=== PATIENT | female | born 1990 | race Caucasian/White ===

== ENCOUNTER 2022-10-21 15:01 | Emergency (ER) | payer OTHER, SELFPAY ==
[2022-10-21 15:18] VITALS: BP 102/64; PULSE 97; RESP 16; TEMP 36.4; O2SAT 100; BMI 24.7
--- NOTE | 2022-10-21 15:31 | CRLHL7_ITS ---
For Patients: As a result of the Century Cures Act, medical imaging exams and procedure reports are released immediately into your electronic medical record. You may view this report before your referring provider. If you have questions, please contact your health care provider. CLINICAL HISTORY: Vaginal bleeding clot TECHNIQUE: Real time, simms scale images were acquired of the pelvis using a transabdominal and transvaginal approach. Color Doppler analysis was performed of the ovaries. FINDINGS: IUD in the endometrial cavity in satisfactory position. The endometrium measures 9 millimeters. Both ovaries appear unremarkable the right ovary measures 3 1 x 1.7 x 2.5 centimeters the left ovary measures 3 point by 1.6 x 2 4 centimeters. Normal blood flow to both ovaries. IMPRESSION: 1. IUD in the endometrial cavity in a satisfactory position. Ovaries are unremarkable study appears. Technologist states that there is no definite . If the patient is then there is no findings for intrauterine . Correlation with HCG levels and short interval follow-up would be recommended. Dictated by Lisa Bacon MD @ 10/21/2022 4:29:24 PM (Electronically Signed)
--- NOTE | 2022-10-21 15:32 | ED_ITS ---
HPI - General Adult General Chief complaint: Vaginal Bleeding Stated complaint: Possible Miscarriage Time Seen by Provider: 10/21/22 15:23 History of Present Illness HPI narrative: This 31-year-old female comes in reporting heavy menstrual vaginal bleeding that started yesterday. She has associated cramping and wonders if she might be having a miscarriage. She states that her last menses was a couple months ago. She has done several home tests which returned negative. She does report some lightheadedness. She states that she has had a miscarriage in the past and these symptoms seem similar. Related Data Home Medications Medication Instructions Recorded Confirmed dextroamphetamine-amphetamine ER 30 mg PO 09/25/22 09/25/22 30 mg 24hr capsule,extend release (Adderall XR) Allergies Allergy/AdvReac Type Severity Reaction Status Date / Time avocado Allergy Abdominal Verified 10/21/22 15:24 Pain diphenhydramine Allergy Difficulty Verified 10/21/22 15:24 [From Benadryl] Breathing latex Allergy Rash Verified 10/21/22 15:24 SSRI Allergy Uncoded 09/25/22 17:25 Review of Systems Status of ROS: Reports: 10 or more systems reviewed and unremarkable except as noted in History and below Narrative: Constitutional: No fevers, no weight gain or loss. Eyes: No discharge. No vision changes. HENT: No congestion, no sore throat, no ear pain. Cardiovascular: No chest pain, no palpitations. Respiratory: No shortness of breath, no wheezes, no cough. Gastrointestinal: No vomiting, no diarrhea. Crampy lower abdominal pain. Genitourinary: No dysuria, no hematuria. Vaginal bleeding with clots. Musculoskeletal: Normal range of motion. Skin: No rashes, no pruritis. Neurological: No dizziness, weakness, sensory change, speech change. Endo/Heme/Allergies: No bruising or bleeding. No polydipsia. Pysch: no suicidality, no anxiety, no insomnia. All other systems reviewed and are negative. PFSH PFS Social History Smoking Status: Former smoker Exam Narrative: Exam Narrative: Constitutional: Well-developed, well-nourished, no acute distress. HEENT: Normocephalic, atraumatic. Neck: Normal range of motion. Nontender. Supple. Heart: Regular. No murmurs. Normal rate. Intact distal pulses. Lungs: Clear to auscultation. No chest discomfort. No wheezes, rhonchi, or rales. Abdomen: Normal bowel sounds. Pain in the lower abdomen. No rebound tenderness. Genitalia: Deferred. Back: No midline tenderness. Normal range of motion. Extremities: Normal range of motion. No injury. Skin: Intact. No rash. Warm. No erythema or pallor. Neurologic: No altered sensation. No weakness. Alert and oriented. Psychiatric: No suicidality. No anxiety or depression. No insomnia. Nursing notes and vitals signs are reviewed. Const: Vital Signs, click to edit/add: Vital Signs - 24 hr 10/21/22 15:18 Temperature 97.6 F Pulse Rate [Left P ulse Oximeter] 97 Respiratory Rate 16 Blood Pressure [Ri ght Upper Arm] 102/64 Pulse Oximetry 100 Oxygen Delivery Me thod Room Air Course Vital Signs Vital signs: Initial Vital Signs Temperature 97.6 F 10/21/22 15:18 Temperature Source Temporal Artery Scan 10/21/22 15:18 Pulse Rate 97 10/21/22 15:18 Respiratory Rate 16 10/21/22 15:18 Blood Pressure 102/64 10/21/22 15:18 Blood Pressure Mean 76 10/21/22 15:18 Blood Pressure Position Sitting 10/21/22 15:18 Pulse Oximetry 100 10/21/22 15:18 Oxygen Delivery Method 10/21/22 15:18 Vital Signs Temperature 97.6 F 10/21/22 15:18 Pulse Rate 97 10/21/22 15:18 Respiratory Rate 16 10/21/22 15:18 Blood Pressure 102/64 10/21/22 15:18 Pulse Oximetry 100 10/21/22 15:18 Oxygen Delivery Method 10/21/22 15:18 Temperature 97.6 F 10/21/22 15:18 Pulse Rate 97 10/21/22 15:18 Respiratory Rate 16 10/21/22 15:18 Blood Pressure 102/64 10/21/22 15:18 Pulse Oximetry 100 10/21/22 15:18 Oxygen Delivery Method 10/21/22 15:18 Medical Decision Making MDM Narrative Medical decision making narrative: This patient comes in with heavy menses and is worried about a miscarriage. Ultrasound shows normal uterus with an IUD in place. There is no sign of . Additionally beta hCG quantitative returns negative. The patient's hemoglobin is in normal range as are her vital signs. She is okay to return home to resume current plans. Lab Data Labs: Lab Results 10/21/22 10/21/22 10/21/22 Range/Units 15:42 15:42 15:42 WBC 9.47 (4.50-11.00) K/uL RBC 4.14 (4.00-5.20) m/uL Hgb 12.1 (12.0-16.0) gm/dL Hct 36.0 (33.0-51.0) % MCV 87 (80-100) fL MCH 29 (26-34) pg MCHC 34 (32-36) gm/dL RDW Coeff of Valerie 12.0 (11.5-15.5) % Plt Count 305 (140-440) K/uL Neut % (Auto) 69.5 (42.0-72.0) % Lymph % (Auto) 20.0 (20-44) % [place] % (Auto) 7.2 (0.0-11.0) % Eos % (Auto) 3.0 (0.0-7.0) % Baso % (Auto) 0.2 (0.0-3.0) % Neut # (Auto) 6.59 (1.7-7.0) K/uL Lymph # (Auto) 1.89 (0.90-2.90) K/uL [place] # (Auto) 0.70 (0.00-0.90) K/UL Eos # (Auto) 0.28 (0.00-0.50) K/uL Baso # (Auto) 0.02 (0.00-0.30) K/uL Abs Immat Gran (auto) 0.01 (0.00-0.30) K/uL Imm/Tot Granulo (auto) 0.1 % HCG, Qual Negative (Negative) HCG, Quant Cancelled Imaging Data US Pelvic: Radiologist's impression: IUD in the endometrial cavity in a satisfactory position. Ovaries are unremarkable study appears. Discharge Plan Discharge Clinical Impression: Dysmenorrhea Patient Disposition: Home, Self-Care Condition: Stable Additional Instructions: Use [id number] medicines as needed and directed. Follow up with MD or return if worsening. Prescriptions: No Action dextroamphetamine-amphetamine [Adderall XR] 30 mg capsule,extended release 24hr 30 mg PO Follow Up/Referrals: Jorge Enciso MD [Primary Care Provider] - Stand Alone Forms: [employer] Info Instructions
[2022-10-21 15:50] LABS: Basophils Absolute Auto 0.02 K/uL (0.00-0.30); Basophils Percent Auto 0.2 % (0.0-3.0); Eosinophils Absolute Auto 0.28 K/uL (0.00-0.50); Hemoglobin* 12.1 gm/dL (12.0-16.0); Immature Granulocytes Abs Auto 0.01 K/uL (0.00-0.30); Immature Granulocytes Pct Auto 0.1 %; Lymphocytes Absolute Auto 1.89 K/uL (0.90-2.90); Mean Corpuscular HGB Conc 34 gm/dL (32-36); Mean Corpuscular Hemoglobin 29 pg (26-34); Mean Corpuscular Volume 87 fL (80-100); Monocytes Percent Auto 7.2 % (0.0-11.0); Neutrophils Absolute Auto 6.59 K/uL (1.7-7.0); Neutrophils Percent Auto 69.5 % (42.0-72.0); Platelet Count* 305 K/uL (140-440); Red Blood Count 4.14 m/uL (4.00-5.20); White Blood Count* 9.47 K/uL (4.50-11.00)
[2022-10-21 15:51] LABS: Slide Review Reflex No
[2022-10-21 16:44] LABS: HCG Qualitative Serum* Negative (Negative)
== END 2022-10-21 17:25 | disposition home or self-care (01) ==
PROVIDERS: Emergency Provider Emergency Medicine Emergency Medical Services; PCP Family Medicine
DX: N94.6 Dysmenorrhea, unspecified (principal)
CPT/HCPCS: 36415; 76817; 84702; 84703; 85025; 99284

== ENCOUNTER 2022-10-24 12:58 | Outpatient (CLI) | payer OTHER, MEDICAID, SELFPAY ==
[2022-10-24 17:17] LABS: Cholesterol* 170 mg/dL (90-199); HDL Cholesterol* 84 mg/dL (>=50); LDL Cholesterol Calculated 70 mg/dL (<100); Triglycerides* 80 mg/dL (40-149)
== END 2022-10-24 12:59 | disposition home or self-care (01) ==
LOC: NFLDREF 13:02
PROVIDERS: PCP Family Medicine; Visit Provider Obstetrics & Gynecology
DX: Z01.419 Encounter for gynecological examination (general) (routine) without abnormal findings (principal); R30.0 Dysuria; Z13.6 Encounter for screening for cardiovascular disorders
CPT/HCPCS: 80061; 87086